=== PATIENT | female | born 1945 | race Caucasian/White ===

== ENCOUNTER → 2017-05-28 | Outpatient (CLI) | payer OTHER | LOC: CIMAGING 08:41 | PROVIDERS: ATTEND Internal Medicine | DX: K80.20 Calculus of gallbladder without cholecystitis without obstruction (principal); R16.0 Hepatomegaly, not elsewhere classified; K76.0 Fatty (change of) liver, not elsewhere classified; K76.89 Other specified diseases of liver | CPT/HCPCS: 76700-PO ==

== ENCOUNTER → 2017-06-06 | Outpatient (CLI) | payer OTHER | LOC: CIMAGING 07:12 | PROVIDERS: ATTEND Internal Medicine | DX: Z12.31 Encounter for screening mammogram for malignant neoplasm of breast (principal); Z80.3 Family history of malignant neoplasm of breast ==

== ENCOUNTER → 2018-05-28 | Outpatient (CLI) | payer OTHER | LOC: EMCIMAGING 09:27 | PROVIDERS: ATTEND Internal Medicine | DX: Z13.820 Encounter for screening for osteoporosis (principal); M85.89 Other specified disorders of bone density and structure, multiple sites; M94.9 Disorder of cartilage, unspecified; Z79.899 Other long term (current) drug therapy | CPT/HCPCS: 77080-PN ==